=== PATIENT | male | born 1970 | race Caucasian/White ===

== ENCOUNTER 2016-08-20 08:52 | Emergency (ER) | payer BC ==
--- NOTE | 2016-08-20 10:22 | DIAGNOSTIC IMAGING REPORT ---
PROCEDURE: XR CHEST 1 VIEW INDICATION: SYNCOPE TECHNIQUE: Portable AP view 10:10 a.m. COMPARISON: None. FINDINGS: Minimal atelectasis in the left lower lobe. Heart and mediastinum are normal. Thorax is normal. IMPRESSION: 1. Minimal atelectasis left lower lobe.
--- NOTE | 2016-08-20 11:39 | DIAGNOSTIC IMAGING REPORT ---
PROCEDURE: XR CERVICAL SPINE 2 OR 3 VIEW INDICATION: NECK PAIN TECHNIQUE: Three views. COMPARISON: None. FINDINGS: There is spondylosis at C5-6 with disc space narrowing and osteophyte formation anteriorly. No evidence of an acute process or fracture. IMPRESSION: 1. Spondylosis C5-6
--- NOTE | 2016-08-20 12:02 | ED ORDER SUMMARY ---
..... Patient: SHELBY BROTHERS OrderSheet [facility] VisitID: [id number] [place] [address] 45y, M Registration Date/Time: 08/20/2016 ORDER SHEET Weight: 117.0 kg (stated) Allergies: Penicillin GENERAL ORDERS: EKG - ER Stat (09:19 08/20/2016 Marizol RBillyNBilly verbal order read back to Emmy JACOBSEN) (9:21 KHoerner) Chest 1V Urgent (10:02 08/20/2016 Emmy JACOBSEN) (Ack 10:04 BENNYoerner) (10:11 KHoerner) Cloth Feeder (Continuous) (10:08/20/2016 Emmy JACOBSEN) (10:04 KHoerner) CBC w Diff Urgent (10:08/20/2016 Emmy JACOBSEN) (Ack 10:04 Jose) (10:17 MWinterer R.N.) CMP Urgent (10:08/20/2016 Emmy JACOBSEN) (Ack 10:04 Jose) (10:17 MWinterer R.N.) UA-Culture if indicated Urgent (10:03 08/20/2016 Emmy JACOBSEN) (Ack 10:04 Jose) (10:17 MWinterer R.N.) Amylase Urgent (10:08/20/2016 Emmy JACOBSEN) (Ack 10:04 Jose) (10:17 MWinterer R.N.) Lipase Urgent (10:08/20/2016 Emmy JACOBSEN) (Ack 10:04 Jose) (10:17 MWinterer R.N.) CPK Urgent (10:08/20/2016 Emmy JACOBSEN) (Ack 10:04 Jose) (10:17 MWinterer R.N.) Troponin-I Urgent (10:08/20/2016 Emmy JACOBSEN) (Ack 10:04 Jose) (10:17 MWinterer R.N.) Pulse oximeter (10:08/20/2016 Emmy JACOBSEN) (10:04 KHoerner) Vitals - Orthostatic (10:03 08/20/2016 Emmy JACOBSEN) (10:16 MWintersammi R.N.) HepCAB Urgent (10:44 08/20/2016 Emmy JACOBSEN) (Ack 10:46 Jose) Cervical Spine 2 or 3V Urgent (10:59 08/20/2016 Emmy JACOBSEN) (Ack 11:10 Jose) MEDICATION ORDERS: IV FLUIDS: IV Saline Lock (10:03 08/20/2016 Emmy JACOBSEN) (10:16 ALEXintersammi R.N.) ORDER SHEET NOTES: [Electronically signed by Nolberto Espinosa R.N. (13:20 08/20/2016)] [Electronically signed by Osmar Gerardo MD (23:28 08/21/2016)] [Electronically locked/signed by Nolberto Espinosa R.N. (13:20 08/20/2016)]
--- NOTE | 2016-08-20 12:02 | ED ORDER SUMMARY ---
..... Patient: SHELBY BROTHERS OrderSheet [facility] VisitID: [id number] [place] [address] 45y, M Registration Date/Time: 08/20/2016 ORDER SHEET Weight: 117.0 kg (stated) Allergies: Penicillin GENERAL ORDERS: EKG - ER Stat (09:19 08/20/2016 Marizol RBillyNBilly verbal order read back to Emmy JACOBSEN) (9:21 KHoerner) Chest 1V Urgent (10:02 08/20/2016 Emmy JACOBSEN) (Ack 10:04 BENNYoerner) (10:11 KHoerner) Admin Secretary (Continuous) (10:08/20/2016 Emmy JACOBSEN) (10:04 KHoerner) CBC w Diff Urgent (10:08/20/2016 Emmy JACOBSEN) (Ack 10:04 Jose) (10:17 MWinterer R.N.) CMP Urgent (10:08/20/2016 Emmy JACOBSEN) (Ack 10:04 Jose) (10:17 MWinterer R.N.) UA-Culture if indicated Urgent (10:03 08/20/2016 Emmy JACOBSEN) (Ack 10:04 Jose) (10:17 MWinterer R.N.) Amylase Urgent (10:08/20/2016 Emmy JACOBSEN) (Ack 10:04 Jose) (10:17 MWinterer R.N.) Lipase Urgent (10:08/20/2016 Emmy JACOBSEN) (Ack 10:04 Jose) (10:17 MWinterer R.N.) CPK Urgent (10:08/20/2016 Emmy JACOBSEN) (Ack 10:04 Jose) (10:17 MWinterer R.N.) Troponin-I Urgent (10:08/20/2016 Emmy JACOBSEN) (Ack 10:04 Jose) (10:17 MWinterer R.N.) Pulse oximeter (10:08/20/2016 Emmy JACOBSEN) (10:04 KHoerner) Vitals - Orthostatic (10:03 08/20/2016 Emmy JACOBSEN) (10:16 MWintersammi R.N.) HepCAB Urgent (10:44 08/20/2016 Emmy JACOBSEN) (Ack 10:46 Jose) Cervical Spine 2 or 3V Urgent (10:59 08/20/2016 Emmy JACOBSEN) (Ack 11:10 Jose) MEDICATION ORDERS: IV FLUIDS: IV Saline Lock (10:03 08/20/2016 Emmy JACOBSEN) (10:16 ALEXintersammi R.N.) ORDER SHEET NOTES: [Electronically signed by Nolberto Espinosa R.N. (13:20 08/20/2016)] [Electronically signed by Osmar Gerardo MD (23:28 08/21/2016)] [Electronically locked/signed by Nolberto Espinosa R.N. (13:20 08/20/2016)]
--- NOTE | 2016-08-20 12:02 | ED CLINICAL REPORT ---
Clinical Report - Physicians/Mid Levels [facility] [address] [place] [address] 08/20/2016 8:53 [id number] Time Seen: 09:18. Arrived- By private vehicle. Historian- patient. HISTORY OF PRESENT ILLNESS Chief Complaint: CHANGED MENTAL STATUS and CONFUSION. This started 5 days ago and is now gone. It was abrupt in onset and has been intermittent. The patient has been confused and had trouble concentrating. The patient has had numbness of the left hand (moderate), (for several years). Usually is alert and oriented X3 and usually has normal mobility. Similar symptoms previously: None. REVIEW OF SYSTEMS The patient has had chills. No fever, sweats, calf pain, chest pain or cough. No difficulty breathing, pedal edema, palpitations, abdominal pain or black stools. No bloody stools, constipation, diarrhea, nausea or vomiting. No urinary problems. he was seeing spots in front of his eyes several days ago that looked like "white worms." This has resolved. It occurred about 10 days ago. All systems otherwise negative, except as recorded above. PAST HISTORY ( PCP - [facility]). Problems: Syncope. Medications: None. Allergies: Penicillin.(hives). SOCIAL HISTORY Current some days smoker (cigarette). Occasional alcohol use. No drug use. No recent travel. Is a local resident. FAMILY HISTORY Cancer in grandparent. mother is an alcoholic. ADDITIONAL NOTES The nursing notes have been reviewed. PHYSICAL EXAM Vital Signs: 08/20/2016 09:05 BP: 145/83. HR: 85. RR: 22. O2 saturation: 95%. Temp: 98.7 F. Have been reviewed. Appearance: Alert. No acute distress. Head: Head atraumatic. Eyes: Pupils equal, round and reactive to light. ENT: Airway intact. Moist mucous membranes. Pharynx normal. Neck: Normal inspection. Neck supple. CVS: Normal heart rate and rhythm. Heart sounds normal. Respiratory: No respiratory distress. Breath sounds normal. Abdomen: Soft and nontender. No organomegaly. Back: Normal inspection. Skin: Skin warm and dry. Normal skin color. Normal skin turgor. Extremities: Extremities exhibit normal ROM. No lower extremity edema. Neuro: Alert. Oriented X 3. Mood/affect normal. Speech normal. Cranial nerves normal (as tested). No cerebellar findings. No motor deficit. No sensory deficit. LABS, X-RAYS, AND EKG EKG: Normal EKG. Rate: 82. EKG unchanged when compared with prior EKG. (25 July 2009). The study has been independently viewed by me. C-Spine X-rays: (IMPRESSION: 1. Spondylosis C5-6). The X-rays were interpreted by the radiologist and contemporaneously by me. Chest X-ray: (IMPRESSION: 1. Minimal atelectasis left lower lobe.). The X-rays were interpreted by the radiologist and contemporaneously by me. Laboratory Tests: UA-Culture if indicated: (JOHN: 08/20/2016 10:15) ( [facility] 08/20/2016 10:36) Final results Test Result Flag Units (Reference) URINE COLOR STRAW URINE APPEARANCE CLEAR URINE GLUCOSE NEGATIVE (NEGATIVE) URINE BILIRUBIN NEGATIVE (NEGATIVE) URINE KETONE NEGATIVE (NEGATIVE) URINE SPECIFIC GRAVITY <= 1.005 L (1.010-1.030) URINE PH 6.5 (5.0-8.0) URINE PROTEIN NEGATIVE (NEGATIVE) URINE UROBILINOGEN 0.2 EU/dL (0.2-1.0) URINE NITRITE NEGATIVE (NEGATIVE) URINE BLOOD NEGATIVE (NEGATIVE) URINE LEUK ESTERASE NEGATIVE (NEGATIVE) URINE RBC NONE SEEN rbc/hpf (0-1) URINE WBC NONE SEEN wbc/hpf (0-1) URINE EPITHELIAL CELLS RARE EPI/hpf (0-5) URINE BACTERIA NONE SEEN (NONE SEEN) URINE COMMENT CULT NOT INDICATED URINE CULTURES ARE SET-UP BASED ON THE FOLLOWING CRITERIA:POSITIVE NITRITEPOSITIVE LEUKOCYTE ESTERASEGREATER THAN 10 WHITE BLOOD CELLSMODERATE (2+) OR GREATER BACTERIA CBC w Diff: (JOHN: 08/20/2016 09:20) ( [facility] 08/20/2016 10:17) Final results Test Result Flag Units (Reference) WHITE BLOOD COUNT 6.0 K/uL (4.5-11.5) RED BLOOD COUNT 4.68 M/uL (4.50-5.90) HEMOGLOBIN 15.9 gm/dL (13.5-17.5) HEMATOCRIT 45.9 % (41.0-53.0) MEAN CELL VOLUME 98 fL (80-100) MEAN CORPUSCULAR HGB 34 pg (26-34) MEAN CORPUSCULAR HGB CONC 35 g/dL (31-37) RED CELL DISTRIBUTION WIDTH 13.0 % (11.6-14.8) PLATELET COUNT 160 K/uL (150-400) NEUTROPHIL % 56.8 % (50-75) LYMPH % 29.1 % (25-40) MONO % 7.6 % (3-14) EOSINOPHIL % 5.8 H % (0-4) BASOPHIL % 0.7 % (0-2) CMP: (JOHN: 08/20/2016 09:20) ( MsgRcvd 08/20/2016 10:41) Final results Test Result Flag Units (Reference) GLUCOSE 99 mg/dL (70-110) BUN 12 mg/dL (7-18) CREATININE 1.1 mg/dL (0.6-1.3) Estimated GFR >60 mL/min Estimated GFR- >60 mL/min Note: Persistent reduction over 3 months in eGFR<60 mL/min/1.73 m2 defines CKD. Patients with eGFR values>=60 mL/min/1.73 m2 may also have CKD if evidence ofpersistent proteinuria. Additional information may be foundat www.kidney.org. SODIUM 142 mmol/L (136-145) POTASSIUM 4.0 mmol/L (3.5-5.1) CHLORIDE 106 mmol/L (98-107) CARBON DIOXIDE 24 mmol/L (21-32) CALCIUM 9.4 mg/dL (8.5-10.1) TOTAL PROTEIN 7.8 g/dL (6.4-8.2) ALBUMIN 4.3 g/dL (3.3-5.0) BILIRUBIN, TOTAL 0.6 mg/dL (0.0-1.0) ALKALINE PHOSPHATASE 79 U/L (46-116) AST (SGOT) 44 H U/L (15-37) ALT (SGPT) 89 H U/L (12-78) LIPASE 213 U/L (73-393) AMYLASE 43 U/L (25-115) CPK 184 U/L (24-260) TROPONIN I <0.05 L ng/mL (0.00-1.5) TROPONIN REFERENCE RANGE:<0.1 NEGATIVE0.1-1.5 INDETERMINANT>1.5 POSITIVE . Lab Tests Pending: Laboratory tests pending. To follow up in accordance with discharge instructions for results of tests (Hep C ab). PROGRESS AND PROCEDURES Course of Care: Patient is stable. Discussed case with on-call health care provider, (Raheel). Reviewed test results and need for additional work-up. Agreed upon treatment plan and need for patient follow-up. Health care provider will see patient in office. Patient/family counseled. Old medical records ordered. Disposition: Discharged. Condition: stable. CLINICAL IMPRESSION Recent transient ischemic attack. Paresthesia Abnormal serum liver function test. INSTRUCTIONS (follow-up the results of your pending hepatitis C studies with your primary care doctor as discussed. They may contact our facility to get the results). Warnings: Further evaluation is necessary. GENERAL WARNINGS: Return or contact your physician immediately if your condition worsens or changes unexpectedly, if not improving as expected, or if other problems arise. OTC Medications: Aspirin 325 mg (available over the counter): take 1 orally every 24 hours. Dispense thirty (30). No refills. Follow-up: Follow up with your doctor [facility]: [phone] tomorrow. Call for the next available appointment. Understanding of the discharge instructions verbalized by patient. (Electronically signed by Osmar Gerardo MD 08/21/2016 23:28)
--- NOTE | 2016-08-20 12:02 | ED CLINICAL REPORT ---
Clinical Report - Physicians/Mid Levels [facility] [address] [place] [address] 08/20/2016 8:53 [facility]ERS [id number] Time Seen: 09:18. Arrived- By private vehicle. Historian- patient. HISTORY OF PRESENT ILLNESS Chief Complaint: CHANGED MENTAL STATUS and CONFUSION. This started 5 days ago and is now gone. It was abrupt in onset and has been intermittent. The patient has been confused and had trouble concentrating. The patient has had numbness of the left hand (moderate), (for several years). Usually is alert and oriented X3 and usually has normal mobility. Similar symptoms previously: None. REVIEW OF SYSTEMS The patient has had chills. No fever, sweats, calf pain, chest pain or cough. No difficulty breathing, pedal edema, palpitations, abdominal pain or black stools. No bloody stools, constipation, diarrhea, nausea or vomiting. No urinary problems. he was seeing spots in front of his eyes several days ago that looked like "white worms." This has resolved. It occurred about 10 days ago. All systems otherwise negative, except as recorded above. PAST HISTORY ( PCP - [facility]). Problems: Syncope. Medications: None. Allergies: Penicillin.(hives). SOCIAL HISTORY Current some days smoker (cigarette). Occasional alcohol use. No drug use. No recent travel. Is a local resident. FAMILY HISTORY Cancer in grandparent. mother is an alcoholic. ADDITIONAL NOTES The nursing notes have been reviewed. PHYSICAL EXAM Vital Signs: 08/20/2016 09:05 BP: 145/83. HR: 85. RR: 22. O2 saturation: 95%. Temp: 98.7 F. Have been reviewed. Appearance: Alert. No acute distress. Head: Head atraumatic. Eyes: Pupils equal, round and reactive to light. ENT: Airway intact. Moist mucous membranes. Pharynx normal. Neck: Normal inspection. Neck supple. CVS: Normal heart rate and rhythm. Heart sounds normal. Respiratory: No respiratory distress. Breath sounds normal. Abdomen: Soft and nontender. No organomegaly. Back: Normal inspection. Skin: Skin warm and dry. Normal skin color. Normal skin turgor. Extremities: Extremities exhibit normal ROM. No lower extremity edema. Neuro: Alert. Oriented X 3. Mood/affect normal. Speech normal. Cranial nerves normal (as tested). No cerebellar findings. No motor deficit. No sensory deficit. LABS, X-RAYS, AND EKG EKG: Normal EKG. Rate: 82. EKG unchanged when compared with prior EKG. (25 July 2009). The study has been independently viewed by me. C-Spine X-rays: (IMPRESSION: 1. Spondylosis C5-6). The X-rays were interpreted by the radiologist and contemporaneously by me. Chest X-ray: (IMPRESSION: 1. Minimal atelectasis left lower lobe.). The X-rays were interpreted by the radiologist and contemporaneously by me. Laboratory Tests: UA-Culture if indicated: (JOHN: 08/20/2016 10:15) ( [facility] 08/20/2016 10:36) Final results Test Result Flag Units (Reference) URINE COLOR STRAW URINE APPEARANCE CLEAR URINE GLUCOSE NEGATIVE (NEGATIVE) URINE BILIRUBIN NEGATIVE (NEGATIVE) URINE KETONE NEGATIVE (NEGATIVE) URINE SPECIFIC GRAVITY <= 1.005 L (1.010-1.030) URINE PH 6.5 (5.0-8.0) URINE PROTEIN NEGATIVE (NEGATIVE) URINE UROBILINOGEN 0.2 EU/dL (0.2-1.0) URINE NITRITE NEGATIVE (NEGATIVE) URINE BLOOD NEGATIVE (NEGATIVE) URINE LEUK ESTERASE NEGATIVE (NEGATIVE) URINE RBC NONE SEEN rbc/hpf (0-1) URINE WBC NONE SEEN wbc/hpf (0-1) URINE EPITHELIAL CELLS RARE EPI/hpf (0-5) URINE BACTERIA NONE SEEN (NONE SEEN) URINE COMMENT CULT NOT INDICATED URINE CULTURES ARE SET-UP BASED ON THE FOLLOWING CRITERIA:POSITIVE NITRITEPOSITIVE LEUKOCYTE ESTERASEGREATER THAN 10 WHITE BLOOD CELLSMODERATE (2+) OR GREATER BACTERIA CBC w Diff: (JOHN: 08/20/2016 09:20) ( [facility] 08/20/2016 10:17) Final results Test Result Flag Units (Reference) WHITE BLOOD COUNT 6.0 K/uL (4.5-11.5) RED BLOOD COUNT 4.68 M/uL (4.50-5.90) HEMOGLOBIN 15.9 gm/dL (13.5-17.5) HEMATOCRIT 45.9 % (41.0-53.0) MEAN CELL VOLUME 98 fL (80-100) MEAN CORPUSCULAR HGB 34 pg (26-34) MEAN CORPUSCULAR HGB CONC 35 g/dL (31-37) RED CELL DISTRIBUTION WIDTH 13.0 % (11.6-14.8) PLATELET COUNT 160 K/uL (150-400) NEUTROPHIL % 56.8 % (50-75) LYMPH % 29.1 % (25-40) MONO % 7.6 % (3-14) EOSINOPHIL % 5.8 H % (0-4) BASOPHIL % 0.7 % (0-2) CMP: (JOHN: 08/20/2016 09:20) ( MsgRcvd 08/20/2016 10:41) Final results Test Result Flag Units (Reference) GLUCOSE 99 mg/dL (70-110) BUN 12 mg/dL (7-18) CREATININE 1.1 mg/dL (0.6-1.3) Estimated GFR >60 mL/min Estimated GFR- >60 mL/min Note: Persistent reduction over 3 months in eGFR<60 mL/min/1.73 m2 defines CKD. Patients with eGFR values>=60 mL/min/1.73 m2 may also have CKD if evidence ofpersistent proteinuria. Additional information may be foundat www.kidney.org. SODIUM 142 mmol/L (136-145) POTASSIUM 4.0 mmol/L (3.5-5.1) CHLORIDE 106 mmol/L (98-107) CARBON DIOXIDE 24 mmol/L (21-32) CALCIUM 9.4 mg/dL (8.5-10.1) TOTAL PROTEIN 7.8 g/dL (6.4-8.2) ALBUMIN 4.3 g/dL (3.3-5.0) BILIRUBIN, TOTAL 0.6 mg/dL (0.0-1.0) ALKALINE PHOSPHATASE 79 U/L (46-116) AST (SGOT) 44 H U/L (15-37) ALT (SGPT) 89 H U/L (12-78) LIPASE 213 U/L (73-393) AMYLASE 43 U/L (25-115) CPK 184 U/L (24-260) TROPONIN I <0.05 L ng/mL (0.00-1.5) TROPONIN REFERENCE RANGE:<0.1 NEGATIVE0.1-1.5 INDETERMINANT>1.5 POSITIVE . Lab Tests Pending: Laboratory tests pending. To follow up in accordance with discharge instructions for results of tests (Hep C ab). PROGRESS AND PROCEDURES Course of Care: Patient is stable. Discussed case with on-call health care provider, (Raheel). Reviewed test results and need for additional work-up. Agreed upon treatment plan and need for patient follow-up. Health care provider will see patient in office. Patient/family counseled. Old medical records ordered. Disposition: Discharged. Condition: stable. CLINICAL IMPRESSION Recent transient ischemic attack. Paresthesia Abnormal serum liver function test. INSTRUCTIONS (follow-up the results of your pending hepatitis C studies with your primary care doctor as discussed. They may contact our facility to get the results). Warnings: Further evaluation is necessary. GENERAL WARNINGS: Return or contact your physician immediately if your condition worsens or changes unexpectedly, if not improving as expected, or if other problems arise. OTC Medications: Aspirin 325 mg (available over the counter): take 1 orally every 24 hours. Dispense thirty (30). No refills. Follow-up: Follow up with your doctor [facility]: [phone] tomorrow. Call for the next available appointment. Understanding of the discharge instructions verbalized by patient. (Electronically signed by Osmar Gerardo MD 08/21/2016 23:28)
--- NOTE | 2016-08-20 12:02 | ED NURSING NOTES ---
Clinical Report - Nurses [facility] [address] [place] [address] 08/20/2016 8:53 Patient: SHELBY BROTHERS TRIAGE Triage time 09:06. Acuity: LEVEL 3. Chief Complaint: (right hand numb and "tingly" and left arm hurts.). Alert. No acute distress. SEPSIS SCREEN: Sepsis Screen. Negative (no infection suspected/documented). BENITO COMA SCORE: Benito Coma Scale: 15- eyes open spontaneously (4); best verbal response- oriented x 4 (5); best motor response- obeys commands (6). --09:16 Sanam Cotter R.N. 09:05 08/20/16. BP: 145/83. HR: 85. RR: 22. O2 saturation: 95%. Temp: 98.7 F. Pain level now 0/10. --09:16 Sanam Cotter R.N. ( Fast exam negative.). --09:16 Sanam Cotter R.N. Weight: 117 kg stated. Height/Length: 68 inches Per Patient. BMI: 39.2. --09:08 Sanam Cotter R.N. Medications None. --09:10 Sanam Cotter R.N. Allergies Penicillin.(hives) --09:10 Sanam Cotter R.N. History Arrived by private vehicle. Historian: patient. Accompanied by spouse. Primary physician (none). This started 4 days ago. ( This all started last when " I had an episodes where I blacked out and had numbness and tingling." Pt. states his fingers on his right hand are now numb and tingly. He also couldn't sleep because his left arm hurt "really bad." He called a RN at [facility] and relayed the symptoms and she instructed him to be eval. in the ED. He has been worked up for cardiac problems/syncope in the past but did not get diagnosed with anything. He has had eeg's and neuro consults also and did not receive a diagnoses. He said this episode is different than his past because the pain in his left arm and he never had the tingling sensation in his hand. He also had a brief moment on where he was having slurred speech and he could not recall 20 min. of time.). PAST MEDICAL HX: Immunizations: status is unknown. SOCIAL HX: Light tobacco smoker (cigarette)- less than 1/2 a pack per day. Occasional alcohol use. No drug use. No infectious disease exposure. ABUSE ASSESSMENT: Abuse assessment: The patient was asked "Do you feel safe in your home?" and "Has anyone hurt you or threatened to hurt you?". No report of abuse. NUTRITIONAL RISK ASSESSMENT: The nutritional risk assessment revealed no deficiencies. FUNCTIONAL ASSESSMENT: Functional assessment: no impairments noted. LEARNING NEEDS ASSESSMENT: The learning needs assessment revealed no barriers. --09:16 Sanam Cotter R.N. PROBLEMS: Syncope. --09:12 Sanam Cotter R.N. Interventions ID band on patient. Ambulatory. --09:16 Sanam Cotter R.N. PHYSICAL ASSESSMENT 09:05. Ambulatory to room. GENERAL / NEURO / PSYCH: Awake. Oriented X 4. Alert. Appears in no acute distress. Speech normal. HEENT: No facial asymmetry noted. RESPIRATORY: Respirations not labored. CVS: Cardiac rhythm: normal sinus rhythm; (83). Capillary refill less than 2 seconds. SKIN: Skin is intact, warm and dry. --09:18 Sanam Cotter R.N. NURSING PROGRESS NOTES EKG time: (917). EKG was ordered, performed by a tech and shown to the ED physician. --09:17 Sanam Cotter R.N. 09:05. monitoring manager, pulse oximeter and NIBP monitor placed on patient; ekg monitor- Lead II; monitor alarms on. Patient gowned. Head of bed elevated. --09:17 Sanam Cotter R.N. 09:05. Two patient identifiers checked. Call light placed in reach. Side rails up x 2. Bed placed in lowest position. Brakes of bed on. Patient ready for evaluation- chart flagged. --09:17 Sanam Cotter R.N. 09:18 08/20/2016 Site #1 started via IV in the right antecubital space with an 18g angiocath, with aseptic technique and good blood return; one attempt. Blood drawn: rainbow set. Labeled in the presence of the patient and sent to the lab. Saline lock flushed with 10 mL saline (HERNESTO Mccullough). --09:18 Sanam Cotter R.N. Patient ID band checked for patient name, birthdate and medical record number: patient confirmed. Instructions provided to collect clean catch urine and patient verbalized understanding. Clean catch urine collected with return of yellow-colored clear urine; sample sent to lab for urinalysis. Specimen labeled in the presence of the patient. --10:18 Sanam Cotter R.N. Patient and family informed about reason for wait. --10:22 Sanam Cotter R.N. 10:21 08/20/16. BP: 111/68. HR: 81. RR: 16. O2 saturation: 96%. Pain level now 07/06. --10:22 Sanam Cotter R.N. 11:46 08/20/16. BP: 120/77. HR: 69. RR: 17. O2 saturation: 99%. --11:48 Sanam Cotter R.N. DISPOSITION / DISCHARGE 12:08/20/2016 Site #1 removed upon discharge. Catheter intact. Bandaid applied. --12:29 Nolberto Espinosa R.N. 12:30 08/20/16. Cardiac rhythm: normal sinus rhythm. Condition at departure: improved. The goals identified in the patient's plan of care were met. No learning barriers present. Discharge instructions provided and reviewed with the patient. Reviewed warnings. Reviewed medication(s). Treatments reviewed. Patient verbalized understanding. Written instructions provided in Spanish. The patient was discharged by the physician. He was discharged home and accompanied by family. He left the Emergency Department ambulatory and via private vehicle. Family member driving. FALL RISK ASSESSMENT: Fall risk assessment completed. No fall risk identified. --12:30 Nolberto Espinosa R.N. 12:29 08/20/16. BP: 109/60. HR: 88. RR: 14. O2 saturation: 100% on room air. Temp: 98.1 F (oral). Pain level now: 05/08. --12:30 Nolberto Espinosa R.N. 12:30 08/20/16. Departure time: 12:30. --12:30 Nolberto Espinosa R.N. Locked/Released at 08/20/2016 13:20 by Nolberto Espinosa R.N.
--- NOTE | 2016-08-20 12:02 | ED NURSING NOTES ---
Clinical Report - Nurses [facility] [address] [place] [address] 08/20/2016 8:53 Patient: SHELBY BROTHERS TRIAGE Triage time 09:06. Acuity: LEVEL 3. Chief Complaint: (right hand numb and "tingly" and left arm hurts.). Alert. No acute distress. SEPSIS SCREEN: Sepsis Screen. Negative (no infection suspected/documented). BENITO COMA SCORE: Benito Coma Scale: 15- eyes open spontaneously (4); best verbal response- oriented x 4 (5); best motor response- obeys commands (6). --09:16 Sanam Cotter R.N. 09:05 08/20/16. BP: 145/83. HR: 85. RR: 22. O2 saturation: 95%. Temp: 98.7 F. Pain level now 0/10. --09:16 Sanam Cotter R.N. ( Fast exam negative.). --09:16 Sanam Cotter R.N. Weight: 117 kg stated. Height/Length: 68 inches Per Patient. BMI: 39.2. --09:08 Sanam Cotter R.N. Medications None. --09:10 Sanam Cotter R.N. Allergies Penicillin.(hives) --09:10 Sanam Cotter R.N. History Arrived by private vehicle. Historian: patient. Accompanied by spouse. Primary physician (none). This started 4 days ago. ( This all started last when " I had an episodes where I blacked out and had numbness and tingling." Pt. states his fingers on his right hand are now numb and tingly. He also couldn't sleep because his left arm hurt "really bad." He called a RN at [facility] and relayed the symptoms and she instructed him to be eval. in the ED. He has been worked up for cardiac problems/syncope in the past but did not get diagnosed with anything. He has had eeg's and neuro consults also and did not receive a diagnoses. He said this episode is different than his past because the pain in his left arm and he never had the tingling sensation in his hand. He also had a brief moment on where he was having slurred speech and he could not recall 20 min. of time.). PAST MEDICAL HX: Immunizations: status is unknown. SOCIAL HX: Light tobacco smoker (cigarette)- less than 1/2 a pack per day. Occasional alcohol use. No drug use. No infectious disease exposure. ABUSE ASSESSMENT: Abuse assessment: The patient was asked "Do you feel safe in your home?" and "Has anyone hurt you or threatened to hurt you?". No report of abuse. NUTRITIONAL RISK ASSESSMENT: The nutritional risk assessment revealed no deficiencies. FUNCTIONAL ASSESSMENT: Functional assessment: no impairments noted. LEARNING NEEDS ASSESSMENT: The learning needs assessment revealed no barriers. --09:16 Sanam Cotter R.N. PROBLEMS: Syncope. --09:12 Sanam Cotter R.N. Interventions ID band on patient. Ambulatory. --09:16 Sanam Cotter R.N. PHYSICAL ASSESSMENT 09:05. Ambulatory to room. GENERAL / NEURO / PSYCH: Awake. Oriented X 4. Alert. Appears in no acute distress. Speech normal. HEENT: No facial asymmetry noted. RESPIRATORY: Respirations not labored. CVS: Cardiac rhythm: normal sinus rhythm; (83). Capillary refill less than 2 seconds. SKIN: Skin is intact, warm and dry. --09:18 Sanam Cotter R.N. NURSING PROGRESS NOTES EKG time: (917). EKG was ordered, performed by a tech and shown to the ED physician. --09:17 Sanam Cotter R.N. 09:05. irrigation system installer, pulse oximeter and NIBP monitor placed on patient; poker room manager- Lead II; monitor alarms on. Patient gowned. Head of bed elevated. --09:17 Sanam Cotter R.N. 09:05. Two patient identifiers checked. Call light placed in reach. Side rails up x 2. Bed placed in lowest position. Brakes of bed on. Patient ready for evaluation- chart flagged. --09:17 Sanam Cotter R.N. 09:18 08/20/2016 Site #1 started via IV in the right antecubital space with an 18g angiocath, with aseptic technique and good blood return; one attempt. Blood drawn: rainbow set. Labeled in the presence of the patient and sent to the lab. Saline lock flushed with 10 mL saline (HERNESTO Mccullough). --09:18 Sanam Cotter R.N. Patient ID band checked for patient name, birthdate and medical record number: patient confirmed. Instructions provided to collect clean catch urine and patient verbalized understanding. Clean catch urine collected with return of yellow-colored clear urine; sample sent to lab for urinalysis. Specimen labeled in the presence of the patient. --10:18 Sanam Cotter R.N. Patient and family informed about reason for wait. --10:22 Sanam Cotter R.N. 10:21 08/20/16. BP: 111/68. HR: 81. RR: 16. O2 saturation: 96%. Pain level now 07/06. --10:22 Sanam Cotter R.N. 11:46 08/20/16. BP: 120/77. HR: 69. RR: 17. O2 saturation: 99%. --11:48 Sanam Cotter R.N. DISPOSITION / DISCHARGE 12:08/20/2016 Site #1 removed upon discharge. Catheter intact. Bandaid applied. --12:29 Nolberto Espinosa R.N. 12:30 08/20/16. Cardiac rhythm: normal sinus rhythm. Condition at departure: improved. The goals identified in the patient's plan of care were met. No learning barriers present. Discharge instructions provided and reviewed with the patient. Reviewed warnings. Reviewed medication(s). Treatments reviewed. Patient verbalized understanding. Written instructions provided in Luxembourgish. The patient was discharged by the physician. He was discharged home and accompanied by family. He left the Emergency Department ambulatory and via private vehicle. Family member driving. FALL RISK ASSESSMENT: Fall risk assessment completed. No fall risk identified. --12:30 Nolberto Espinosa R.N. 12:29 08/20/16. BP: 109/60. HR: 88. RR: 14. O2 saturation: 100% on room air. Temp: 98.1 F (oral). Pain level now: 05/08. --12:30 Nolberto Espinosa R.N. 12:30 08/20/16. Departure time: 12:30. --12:30 Nolberto Espinosa R.N. Locked/Released at 08/20/2016 13:20 by Nolberto Espinosa R.N.
--- NOTE | 2016-08-21 23:28 | ED DISCHARGE INSTRUCTIONS ---
Patient: SHELBY BROTHERS General Instructions [facility] VisitID: [id number] [place] [address] 45y, M Registration Date/Time: 08/20/2016 Recent transient ischemic attack. Paresthesia Abnormal serum liver function test. INSTRUCTIONS (follow-up the results of your pending hepatitis C studies with your primary care doctor as discussed. They may contact our facility to get the results). Warnings: Further evaluation is necessary. GENERAL WARNINGS: Return or contact your physician immediately if your condition worsens or changes unexpectedly, if not improving as expected, or if other problems arise. OTC Medications: Aspirin 325 mg (available over the counter): take 1 orally every 24 hours. Dispense thirty (30). No refills. Follow-up: Follow up with your doctor [facility]: [phone] tomorrow. Call for the next available appointment. Understanding of the discharge instructions verbalized by patient. ADDITIONAL INFORMATION TIA: Transient Ischemic Attack The spell you had today is called a TIA (mini-stroke). It is caused by a temporary decrease or blockage of blood flow to a part of your brain. A TIA often happens when a blood clot travels to a blood vessel in the brain. The clot reduces or blocks blood flow, resulting in the symptoms you had. After a short while, the clot dissolves, blood flows again, and the symptoms disappear. Persons with atherosclerosis (hardening of the arteries) or atrial fibrillation (a type of irregular heartbeat) are at higher risk of TIA. TIA causes temporary symptoms similar to a stroke, but lasts less than 24 hours. A full stroke causes symptoms that last more than 24 hours and may be permanent. Once you have had a TIA, you are at risk of having a full stroke. Therefore, be sure to follow up with your doctor for further evaluation. This may include an ultrasound of the arteries in your neck and an evaluation of your heart. If problems are found, your doctor will recommend treatment with medications and/or procedures. Medications to reduce your chance of having another TIA (and stroke) include those that prevent blood clots, such as antiplatelet medicines and anticoagulant medicines. Home care The following guidelines will help you take care of yourself at home: If all of your symptoms have resolved, there is nothing special that you need to do today. Rest at home and avoid exertion for the rest of the day. If your doctor has prescribed antiplatelet medication, take it as directed. Other ways to reduce your risk of a stroke Hypertension, diabetes, elevated cholesterol, and smoking are risk factors for stroke and heart disease. These can be controlled through medications, diet and lifestyle changes. Taking daily aspirin (or similar medications) is a simple but important part of preventing stroke. Follow-up care Call your doctor for an appointment in the next few days for another evaluation. Additional tests may be needed. If you had an X-ray, CT scan, MRI scan, or ECG (electrocardiogram), it will be reviewed by a specialist. Youll be notified of any new findings that will affect your care. When to call 911 or emergency services Get immediate medical attention if any of the following occur: Any of your TIA symptoms return New problems with speech, vision, walking, or weakness or numbeness of the face or on one side of the body Severe headache, fainting spell, dizziness, or seizure Paraesthesias Paraesthesia refers to a burning or prickling sensation that is sometimes felt in the hands, arms, legs or feet. It can also occur in other parts of the body. It can also feel like tingling or numbness, skin crawling or itching.The sensation is usually painless. Most people have experienced pins and needles. This feeling happens when legs have been crossed for too long and pressure is placed on a nerve. This is a temporary paraesthesia. It quickly goes away once the pressure is relieved. There are many possible causes for chronic paraesthesias. These include such disorders as stroke, herniated disk (pressing on a nerve), trapped nerve in the shoulder, elbow or wrist (such as carpal tunnel syndrome), vitamin deficiencies or even certain medicines. Laboratory tests are needed to make an accurate diagnosis. These tests may include blood tests, X-ray, CT (computerized tomography) scan or a muscle test (electromyography).Depending on the cause, treatment may include physical therapy. Home Care: Do not make any changes to your medicines without advice from your doctor. If vitamins have been prescribed, remember to take them daily at the recommended dose. Because of a decrease in feeling, a numb hand or foot may be more prone to injury. Take care to protect these areas from cuts, bumps, bruises, swain or other injury. Keep your nails trimmed and wash your hands and feet often. Wear shoes that fit well to avoid pressure points, blisters and ulcers. Look at your hands and feet carefully (including the soles of your feet and between your toes) at least once a week and notify your doctor of any open wounds or signs of infection. Follow Up with your doctor or as advised by our staff. You may need further testing to determine the exact cause of your paraesthesia. [NOTE: If blood tests, X-ray, CT scan or electromyography were done, specialists will review them. You will be notified of any new findings that may affect your care.] Get Prompt Medical Attention if any of the following occur: Numbness or weakness of the face, one arm or one leg Slurred speech, confusion, trouble speaking, walking or seeing Severe headache, fainting spell, dizziness or seizure Chest, arm, neck or upper back pain Loss of bladder or bowel control Open wound with redness, swelling or pus Aspirin Oral tablet What is this medicine? ASPIRIN ( pir in) is a pain reliever. It is used to treat mild pain and fever. This medicine is also used as directed by a doctor to prevent and to treat heart attacks, to prevent strokes, and to treat arthritis or inflammation. How should I use this medicine? Take this medicine by mouth with a glass of water. Follow the directions on the package or prescription label. You can take this medicine with or without food. If it upsets your stomach, take it with food. Do not take your medicine more often than directed. Talk to your dry paste supervisor regarding the use of this medicine in children. While this drug may be prescribed for children as young as 12 years of age for selected conditions, precautions do apply. Children and teenagers should not use this medicine to treat chicken pox or flu symptoms unless directed by a doctor. Patients over 65 years old may have a stronger reaction and need a smaller dose. What side effects may I notice from receiving this medicine? Side effects that you should report to your doctor or health livestock caretaker as soon as possible: allergic reactions like skin rash, itching or hives, swelling of the face, lips, or tongue breathing problems changes in hearing, ringing in the ears confusion general ill feeling or flu-like symptoms pain on swallowing redness, blistering, peeling or loosening of the skin, including inside the mouth or nose signs and symptoms of bleeding such as bloody or black, tarry stools; red or dark-brown urine; spitting up blood or brown material that looks like coffee grounds; red spots on the skin; unusual bruising or bleeding from the eye, gums, or nose trouble passing urine or change in the amount of urine unusually weak or tired yellowing of the eyes or skin Side effects that usually do not require medical attention (report to your doctor or health livestock caretaker if they continue or are bothersome): diarrhea or constipation nausea, vomiting stomach gas, heartburn What may interact with this medicine? Do not take this medicine with any of the following medications: cidofovir ketorolac probenecid This medicine may also interact with the following medications: alcohol alendronate bismuth subsalicylate flavocoxid herbal supplements like feverfew, garlic, liam, ginkgo biloba, horse chestnut medicines for diabetes or glaucoma like acetazolamide, methazolamide medicines for gout medicines that treat or prevent blood clots like enoxaparin, heparin, ticlopidine, warfarin other aspirin and aspirin-like medicines NSAIDs, medicines for pain and inflammation, like ibuprofen or naproxen pemetrexed sulfinpyrazone varicella live vaccine What if I miss a dose? If you are taking this medicine on a regular schedule and miss a dose, take it as soon as you can. If it is almost time for your next dose, take only that dose. Do not take double or extra doses. Where should I keep my medicine? Keep out of the reach of children. Store at room temperature between 15 and 30 degrees C (59 and 86 degrees F). Protect from heat and moisture. Do not use this medicine if it has a strong vinegar smell. Throw away any unused medicine after the expiration date. What should I tell my health care provider before I take this medicine? They need to know if you have any of these conditions: anemia asthma bleeding problems child with chickenpox, the flu, or other viral infection diabetes gout if you frequently drink alcohol containing drinks kidney disease liver disease low level of vitamin K lupus smoke tobacco stomach ulcers or other problems an unusual or allergic reaction to aspirin, tartrazine dye, other medicines, dyes, or preservatives or trying to get breast-feeding What should I watch for while using this medicine? If you are treating yourself for pain, tell your doctor or health livestock caretaker if the pain lasts more than 10 days, if it gets worse, or if there is a new or different kind of pain. Tell your doctor if you see redness or swelling. Also, check with your doctor if you have a fever that lasts for more than 3 days. Only take this medicine to prevent heart attacks or blood clotting if prescribed by your doctor or health livestock caretaker. Do not take aspirin or aspirin-like medicines with this medicine. Too much aspirin can be dangerous. Always read the labels carefully. This medicine can irritate your stomach or cause bleeding problems. Do not smoke cigarettes or drink alcohol while taking this medicine. Do not lie down for 30 minutes after taking this medicine to prevent irritation to your throat. If you are scheduled for any medical or dental procedure, tell your healthcare provider that you are taking this medicine. You may need to stop taking this medicine before the procedure. You have been given the following additional information: TIA: Transient Ischemic Attack Paraesthesias Aspirin Oral tablet (Electronically signed by Osmar Gerardo MD 08/21/2016 23:28)
--- NOTE | 2016-08-21 23:29 | ED MED RECONCILIATION SUMMARY ---
Patient: SHELBY BROTHERS Medication Reconciliation Report [facility] VisitID: [id number] [address] [place] [address] 45y, M Registration Date/Time: 08/20/2016 Weight: 117.0 kg Height/Length: 68 in. BMI: 39.2 ALLERGIES: Penicillin The patient's Home Medications are listed below: NONE. The source(s) of the original Home Medication information: Not obtained. The following Medications were given to the patient in the Emergency Department: None. The following Medications were prescribed to the patient: Aspirin 325 mg (available over the counter): take 1 orally every 24 hours. Dispense thirty (30). No refills. -- Osmar Gerardo MD
--- NOTE | 2016-08-21 23:29 | ED MAR SUMMARY ---
..... Medication Administration Record [facility] [address] [place], [place] [id number] Patient: SHELBY BROTHERS Visit ID: [id number] 45y, M Weight: 117.0 kg Height/Length: 68 in BMI: 39.2 ALLERGIES: Penicillin
--- NOTE | 2016-08-21 23:29 | ED MED RECONCILIATION SUMMARY ---
Patient: SHELBY BROTHERS Medication Reconciliation Report [facility] VisitID: [id number] [address] [place] [address] 45y, M Registration Date/Time: 08/20/2016 Weight: 117.0 kg Height/Length: 68 in. BMI: 39.2 ALLERGIES: Penicillin The patient's Home Medications are listed below: NONE. The source(s) of the original Home Medication information: Not obtained. The following Medications were given to the patient in the Emergency Department: None. The following Medications were prescribed to the patient: Aspirin 325 mg (available over the counter): take 1 orally every 24 hours. Dispense thirty (30). No refills. -- Osmar Gerardo MD
--- NOTE | 2016-08-21 23:29 | ED MAR SUMMARY ---
..... Medication Administration Record [facility] [address], [place] [id number] Patient: SHELBY BROTHERS Visit ID: [id number] 45y, M Weight: 117.0 kg Height/Length: 68 in BMI: 39.2 ALLERGIES: Penicillin
== END 2016-08-20 12:30 | disposition home or self-care (01) ==
LOC: ED SRH 08:52
DX: R20.2 Paresthesia of skin (principal); Z86.73 Personal history of transient ischemic attack (TIA), and cerebral infarction without residual deficits; R74.8 Abnormal levels of other serum enzymes; F17.210 Nicotine dependence, cigarettes, uncomplicated; Z88.0 Allergy status to penicillin
CPT/HCPCS: 90004; 90100; 90616; 92235; 92530; 92610; 95059; 99777